=== PATIENT | female | born 1990 | race African-American/Black ===

== ENCOUNTER 2020-12-14 13:12 | Emergency (ER) | payer MEDICAID, OTHER ==
--- NOTE | 2020-12-14 13:50 | EDM.PDOC ---
ED HPI GENERAL MEDICAL PROBLEM - General Chief Complaint: Skin Complaint Stated Complaint: ALLERGIC REACTION DYE HAIR Time Seen by Provider: 12/14/20 13:30 Source of Information: Reports: Patient History Limitations: Reports: No Limitations - History of Present Illness INITIAL COMMENTS - FREE TEXT/NARRATIVE: 30-year-old female used a hair dye 2 days ago and today the scalp is very irritated, feels like there is "pressure" and extreme itching. No other systemic reaction. Onset: Gradual Duration: Day(s): (Last 24 hours symptoms have developed) Location: Reports: Other (Scalp only) Associated Symptoms: Reports: No Other Symptoms - Related Data Allergies Allergy/AdvReac Type Severity Reaction Status Date / Time amoxicillin AdvReac Hives Verified 12/14/20 13:31 morphine AdvReac Hives Verified 12/14/20 13:31 Penicillins AdvReac Hives Verified 12/14/20 13:31 Home Meds: Home Meds Letrozole 2.5 mg PO DAILY 12/14/20 [History] Meloxicam 7.5 mg PO DAILY 12/14/20 [History] Progesterone, Micronized [Progesterone] 200 mg PO DAILY 12/14/20 [History] Sertraline [Zoloft] 50 mg PO DAILY 12/14/20 [History] Past Medical History HEENT History: Reports: Impaired Vision [facility] History: Reports: , Spontaneous Musculoskeletal History: Reports: Back Pain, Chronic Psychiatric History: Reports: Anxiety Dermatologic History: Reports: Other (See Below) - Infectious Disease History Infectious Disease History: Reports: Chicken Pox - Past Surgical History Head Surgeries/Procedures: Reports: None HEENT Surgical History: Reports: None Musculoskeletal Surgical History: Reports: None Dermatological Surgical History: Reports: Skin Graft Social & Family History - Tobacco Use Tobacco Use Status *Q: Never Tobacco User Second Hand Smoke Exposure: No - Caffeine Use Caffeine Use: Reports: Coffee, Soda, Tea - Recreational Drug Use Recreational Drug Use: No ED ROS GENERAL - Review of Systems Review Of Systems: See Below Constitutional: Denies: Fever, Chills HEENT: Reports: No Symptoms Respiratory: Denies: Shortness of Breath Cardiovascular: Denies: Chest Pain GI/Abdominal: Reports: No Symptoms Musculoskeletal: Reports: No Symptoms Skin: Reports: Pruritis, Erythema Neurological: Denies: Headache ED EXAM, SKIN/RASH Exam: See Below Exam Limited By: No Limitations General Appearance: Alert, No Apparent Distress Eye Exam: Bilateral Eye: Normal Inspection Head: Other (There is mild erythema of the scalp which came in contact with the hair dye, no other systemic findings) Neck: Supple, Non-Tender Respiratory/Chest: Lungs Clear Neurological: Alert, Oriented Skin: Warm, Dry, Erythema (Erythema of the scalp, the irritation stops at the hairline) Course - Vital Signs Last Recorded V/S: Last Vital Signs Temp 97.8 F 12/14/20 13:30 Pulse 68 12/14/20 13:30 Resp 16 12/14/20 13:30 BP 124/75 12/14/20 13:30 Pulse Ox 97 12/14/20 13:30 - Re-Assessments/Exams Free Text/Narrative Re-Assessment/Exam: 12/14/20 13:48 Appears the patient has developed a contact dermatitis from her recent chemical use in the hair. She will be placed on 60 mg of prednisone from 2 to 5 days, encouraged to continue with Benadryl and recheck if worsening despite treatment. Departure - Departure Time of Disposition: 13:55 Disposition: Home, Self-Care 01 Clinical Impression: Contact dermatitis Qualifiers: Contact dermatitis type: irritant Contact dermatitis trigger: other chemical product Qualified Code(s): L24.5 - Irritant contact dermatitis due to other chemical products - Discharge Information Instructions: Contact Dermatitis, [id number] Referrals: PCP,None [Primary Care Provider] - Forms: ED Department Discharge Care Plan Goals: Take 6 pills of prednisone with food once daily with your first meal of the day for the next 2 to 5 days. Continue with Benadryl as needed. Return anytime if worsening despite treatment such as shortness of breath or difficulty breathing. Consider rechecking in 2 to 3 days if not improving. Sepsis Event Note (ED) - Evaluation Sepsis Screening Result: No Definite Risk - Focused Exam Vital Signs: Vital Signs Temp Pulse Resp BP Pulse Ox 12/14/20 13:30 97.8 F 68 16 124/75 97 12/14/20 13:29 97.8 F 68 16 124/75 97
== END 2020-12-14 13:55 | disposition home or self-care (01) ==
LOC: JP.ED 13:12
DX: L24.5 Irritant contact dermatitis due to other chemical products (principal); Z88.0 Allergy status to penicillin; Z88.5 Allergy status to narcotic agent
CPT/HCPCS: 99283

== ENCOUNTER 2020-12-15 12:51 | Emergency (ER) | payer OTHER ==
[2020-12-15] MEDS ORDERED: methylPREDNISolone Sodium Succinate 125 MG/2 ML SDV IVPUSH ONE (13:53)
[2020-12-15] MEDS ORDERED: Sodium Chloride 0.9% 1,000 ML IV SCH (14:00)
--- NOTE | 2020-12-15 14:26 | EDM.PDOC ---
ED HPI GENERAL MEDICAL PROBLEM - General Chief Complaint: Allergic Reaction Stated Complaint: ALLERGIC REACTION TO HAIR DYE Time Seen by Provider: 12/15/20 13:08 Source of Information: Reports: Patient History Limitations: Reports: No Limitations - History of Present Illness INITIAL COMMENTS - FREE TEXT/NARRATIVE: 30 yp present to the ER with continued irritation associated with a allergic dermatitis caused by a hair dye. This morning she woke with swelling and redness bilateral eye lids. scalp continues to be very itchy. she did take prednisone this AM. She is returning home tonight. - Related Data Allergies Allergy/AdvReac Type Severity Reaction Status Date / Time amoxicillin AdvReac Hives Verified 12/15/20 13:42 morphine AdvReac Hives Verified 12/15/20 13:42 Penicillins AdvReac Hives Verified 12/15/20 13:42 Home Meds: Home Meds Letrozole 2.5 mg PO DAILY 12/14/20 [History] Meloxicam 7.5 mg PO DAILY 12/14/20 [History] Progesterone, Micronized [Progesterone] 200 mg PO DAILY 12/14/20 [History] Sertraline [Zoloft] 50 mg PO BEDTIME 12/14/20 [History] diphenhydrAMINE [Benadryl] 25 mg PO Q6H PRN 12/15/20 [History] predniSONE [Prednisone] 10 mg PO DAILY 12/15/20 [History] Past Medical History HEENT History: Reports: Impaired Vision [employer] History: Reports: , Spontaneous Musculoskeletal History: Reports: Back Pain, Chronic Psychiatric History: Reports: Anxiety Dermatologic History: Reports: Other (See Below) - Infectious Disease History Infectious Disease History: Reports: Chicken Pox - Past Surgical History Head Surgeries/Procedures: Reports: None HEENT Surgical History: Reports: None Musculoskeletal Surgical History: Reports: None Dermatological Surgical History: Reports: Skin Graft Social & Family History - Tobacco Use Tobacco Use Status *Q: Never Tobacco User - Caffeine Use Caffeine Use: Reports: Coffee, Soda, Tea ED ROS ALLERGIC REACTION - Review of Systems Review Of Systems: See Below Constitutional: Denies: Fever, Chills, Fatigue Respiratory: Denies: Shortness of Breath, Wheezing Cardiovascular: Denies: Chest Pain GI/Abdominal: Denies: Abdominal Pain Skin: Reports: Rash ED EXAM GENERAL NO PERIP PULSE - Physical Exam Exam: See Below Exam Limited By: No Limitations General Appearance: Alert, WD/WN, No Apparent Distress Respiratory/Chest: No Respiratory Distress Skin Exam: Rash (erythemic puritic rash within the scalp hairline, moderate edema of bolateral eye lids, mild erythema of the eye lids) Course - Vital Signs Last Recorded V/S: Last Vital Signs Temp 36.7 C 12/15/20 13:45 Pulse 73 12/15/20 13:45 Resp 16 12/15/20 13:45 BP 122/68 12/15/20 13:45 Pulse Ox 100 12/15/20 13:45 - Orders/Labs/Meds Orders: Active Orders 24 hr Category Date Time Status Sodium Chloride 0.9% [Normal Saline] 1,000 ml Med 12/15/20 14:00 Active IV ASDIRECTED Medication Orders Sodium Chloride (Normal Saline) 1,000 mls @ 999 mls/hr IV ASDIRECTED KALEIGH Last Admin: 12/15/20 14:13 Dose: 999 mls/hr Documented by: PREILOR Meds: Medications Generic Name Dose Route Start Last Admin Trade Name Freq PRN Reason Stop Dose Admin Sodium Chloride 1,000 mls @ 999 mls/hr 12/15/20 14:00 12/15/20 14:13 Normal Saline IV 999 mls/hr ASDIRECTED KALEIGH Administration Discontinued Medications Generic Name Dose Route Start Last Admin Trade Name Freq PRN Reason Stop Dose Admin Methylprednisolone Sodium Succinate 125 mg 12/15/20 13:53 12/15/20 14:14 Methylprednisolone Sodium Succinate 125 Mg/2 Ml Sdv IVPUSH 12/15/20 13:54 125 mg ONETIME ONE Administration Departure - Departure Time of Disposition: 14:40 Disposition: Home, Self-Care 01 Condition: Good Clinical Impression: Allergic dermatitis - Discharge Information *PRESCRIPTION DRUG MONITORING PROGRAM REVIEWED*: Not Applicable *COPY OF PRESCRIPTION DRUG MONITORING REPORT IN PATIENT KIMBERLY: Not Applicable Instructions: Contact Dermatitis Referrals: PCP,None [Primary Care Provider] - Forms: ED Department Discharge Additional Instructions: continue with prednisone as planned fluid intake with goal of 1.5 Liters per day hot showers will increase the itching and irritation work note provided Sepsis Event Note (ED) - Evaluation Sepsis Screening Result: No Definite Risk - Focused Exam Vital Signs: Vital Signs Temp Pulse Resp BP Pulse Ox 12/15/20 13:45 36.7 C 73 16 122/68 100 12/15/20 13:06 36.7 C 73 16 100 - My Orders Last 24 Hours: My Active Orders 12/15/20 14:00 Sodium Chloride 0.9% [Normal Saline] 1,000 ml IV ASDIRECTED - Assessment/Plan Last 24 Hours: My Active Orders 12/15/20 14:00 Sodium Chloride 0.9% [Normal Saline] 1,000 ml IV ASDIRECTED
== END 2020-12-15 15:09 | disposition home or self-care (01) ==
LOC: JP.ED 12:51
DX: L23.4 Allergic contact dermatitis due to dyes (principal); Z79.899 Other long term (current) drug therapy
CPT/HCPCS: 96374; 99283-25; J2930; J7030